=== PATIENT | male | born 1945 | race Caucasian/White ===

== ENCOUNTER 2023-01-12 18:18 | Emergency (ER) | payer MEDICARE, SELFPAY ==
[2023-01-12] VITALS (18 sets, daily range): BP systolic 154–189; BP diastolic 67–96; PULSE 60–74; RESP 12–18; TEMP 36.3; O2SAT 97–100
--- NOTE | ~2023-01-12 | CT_ITS ---
EXAMINATION: CT abdomen pelvis w con DATE: 01/12/2023 21:49 INDICATION: Generalized abdominal pain. Nausea and vomiting. TECHNIQUE: Computed tomography (CT) of the abdomen and pelvis was performed with 100 mL Omnipaque 350 intravenous contrast. Automated exposure control and iterative reconstruction technique were employe d. The dose-length product was 1356.25 mGy-cm. COMPARISON: None. FINDINGS: The visualized portions of the lung bases demonstrate mild atelectasis. There is mild scarr ing in paraspinal right lower lobe. No pleural effusion. Cardiomegaly is noted. There are coronary ar rick calcifications. No pericardial effusion. There is a small sliding hiatal hernia. There is hetero geneous hepatic steatosis. The gallbladder is distended. Calcifications in the spleen are consistent with old granulomatous disease. The pancreas, adrenal glands, and right kidney are normal. There is a 4.5 cm cyst in left kidney. There is an umbilical hernia containing fat. The prostate is mildly enla rged. There is diverticulosis of the colon without evidence of diverticulitis. There are no dilated l oops of bowel. The appendix is not visualized. There are no pathologically enlarged lymph nodes. Ther e is no free intraperitoneal fluid. There is a total left hip arthroplasty. There is lumbar levocurva ture and severe spondylosis. IMPRESSION: 1. Gallbladder distention, which may be secondary to fasting. Correlate with physical exam exclude ac bull cholecystitis. 2. Small sliding hiatal hernia. 3. Umbilical hernia containing fat. Reviewed, dictated and finalized at location A. K SPLITTER IMPRESSION: 1. Gallbladder distention, which may be secondary to fasting. Correlate with ph ysical exam exclude acute cholecystitis. 2. Small sliding hiatal hernia. 3. Umbilical hernia containing fat.
--- NOTE | 2023-01-12 20:29 | ED.ABDPAIN ---
HPI - Abdominal Pain General Chief Complaint: Abdominal Pain Stated Complaint: I'm dehydrated and have a belly ache Time Seen by Provider: 01/12/23 20:27 Source: patient and family Mode of arrival: ambulatory Limitations: no limitations History of Present Illness HPI narrative: Patient is 77 years old white male came to the emergency room by private car with his complaining of diffuse abdominal aches for the last 5 days associated with nausea. Worse with eating and drinking, nothing make it better. May be Tylenol. Patient was seen in [place] emergency room 2 days ago, he reported that his blood work-up and CAT scan of the abdomen and pelvis showed no acute abnormalities. History of appendectomy, peptic ulcer disease, diabetes, hypertension, hyperlipidemia, hypothyroidism. Patient does not smoke or drink or uses drugs. Related Data Allergies Allergy/AdvReac Type Severity Reaction Status Date / Time No Known Allergies Allergy Verified 01/12/23 18:41 Review of Systems Review of Systems: All systems reviewed & are unremarkable except as noted in HPI and below Exam Narrative: General appearance: Well-developed, well-nourished Skin: Normal color Head: Normocephalic, nontraumatic Eyes: Clear conjunctiva ENT: Oropharynx normal, ears normal, nose normal Neck: Supple, nontender Chest and respiratory: Airway patent, no respiratory distress, no accessory muscle use Heart: Regular rate/rhythm Abdomen: Soft, mild diffuse tenderness, no guarding or rebound no organomegaly, quiet bowel sounds Vascular: Normal peripheral pulses, normal capillary refill. Musculoskeletal: Normal range of motion, nontender back Neurologic: Alert and oriented ?3, TILE MACHINE OPERATOR is normal as tested, no gross motor deficit Course Reevaluation(s) Reevaluation #1: Currently patient feeling much better after having Dilaudid and Zofran IV Date: 01/12/23 Time: 22:20 Vital Signs Vital signs: Vital Signs Temperature 36.3 C L 01/12/23 18:38 Pulse Rate 74 01/12/23 18:38 Respiratory Rate 16 01/12/23 18:38 Blood Pressure 167/86 H 01/12/23 18:38 Pulse Oximetry 99 01/12/23 18:38 Temperature 36.3 C L 01/12/23 18:38 Pulse Rate 74 01/12/23 18:38 Respiratory Rate 16 01/12/23 18:38 Blood Pressure 167/86 H 01/12/23 18:38 Pulse Oximetry 99 01/12/23 18:38 MDM - Abdominal Pain MDM Narrative Medical decision making narrative: Patient presents with diffuse abdominal aches for 5 days, associate with nausea, no fever, no chills, no constipation or diarrhea. Patient was seen in another emergency room 2 days ago and work-up showed no acute abnormality. Patient is back to our emergency room today for the same complaint, physical examination showed diffuse distention, mild diffuse tenderness, no guarding or rebound. Labs, UA, CT abdomen pelvis with IV contrast ordered. Blood work-up showed no acute abnormality, urine analysis showed no acute abnormality, CT abdomen and pelvis showed gallbladder distention. Mild intrahepatic biliary dilatation. No calcified gallstones. Bowel is normal dilated. No free air. Diverticulitis or appendicitis. No hydronephrosis. Gastroparesis is my concern. My plan to discharge patient on Bent[place] and to follow-up with dealer support technician. Patient agreed, the pt was discharged to home.the pt,s condition upon discharge was fair,education was provided to the pt in reference to the final impression,discharge study results,treatment,prognosis and need for follow up . Differential Diagnosis Differential diagnosis: Likely abdominal pain, constipation, diverticulitis, pancreatitis and other (Colitis, diabetic gastroparesis) Imaging Data [facility]
--- NOTE | 2023-01-12 20:36 | PC.NURSE ---
Patient states he had taken a tramadol at approx 1600 today.
[2023-01-12 20:39] LABS: Basophils Percent Auto 0.4 % (0.2-1.2); Eosinophils Absolute Auto 0.1 K/mm3 (0-0.3); Eosinophils Percent Auto 1.4 % (0-4.4); Hematocrit 39.5 % (42.0-52.0); Hemoglobin 13.1 g/dL (14.0-18.0); Immature Granulocyte Absolute 0.03 K/mm3 (0.00-0.031); Immature Granulocyte Percent A 0.3 % (0-0.5); Lymphocytes Absolute Auto 2.46 K/mm3 (0.9-3.2); Lymphocytes Percent Auto 25.6 % (18.3-44.2); Mean Corpuscular HGB Conc 33.2 g/dl (32-36); Mean Corpuscular Hemoglobin 31.3 pg (26-34); Mean Corpuscular Volume 94.3 fl (80-100); Mean Platelet Volume 8.9 fl (7.4-10.4); Monocytes Absolute Auto 0.8 K/mm3 (0.1-0.6); Neutrophils Absolute Auto 6.2 K/mm3 (1.3-6.7); Neutrophils Percent Auto 64.3 % (45.5-73.1); Platelet Count Result 161 k/mm3 (150-375); Red Blood Count 4.19 M/mm3 (4.6-6.20); Red Cell Distribution Width 13.4 % (11.5-14.5); White Blood Count 9.6 K/mm3 (4.5-10.0)
[2023-01-12] MEDS: SODIUM CHLORIDE 0.9% IV 1,000 ML 999 ML IV CONT (20:45)
[2023-01-12 21:06] LABS: Alanine Aminotransferase 38 U/L (6-50); Albumin Level 4.9 g/dL (3.5-5.1); Alkaline Phosphatase 69 U/L (38-126); Anion Gap 12 mmol/L (8-16); Aspartate Amino Transferase 45 U/L (17-59); Bilirubin,Total 1.1 mg/dL (0.2-1.3); Blood Urea Nitrogen 19 mg/dL (9-20); Calcium 8.7 mg/dL (8.4-10.2); Carbon Dioxide 26 mmol/L (22-30); Chloride 103 mmol/L (98-107); Estimated CRCL calculation 53 ml/min; Estimated Glomerular Filt Rate 59; Glucose 110 mg/dL (65-110); Lipase 264 U/L (23-300); Potassium 4.1 mmol/L (3.4-5.0); Sodium 141 mmol/L (137-145)
--- NOTE | 2023-01-12 21:34 | PC.NURSE ---
Patient taken to CT at this time.
[2023-01-12 22:07] LABS: Appearance Urine Clear (Clear); Bilirubin Urine Negative (Negative); Blood Urine Negative (Negative); Color Urine Yellow (Yellow); Glucose Urine UA Negative (Negative); Ketones Urine Negative (Negative); Leukocyte Esterase Ur Negative LEU/UL (Negative); Nitrate Urine Negative (Negative); Protein Urine 1+ mg/dL (Negative); Specific Grav Ur 1.015 (1.001-1.035); Urobilinogen Urine 0.2 mg/dL (<2.0); pH Urine 5.5 (5.0-9.0)
[2023-01-12 22:11] LABS: RBC Urine 0-2 /hpf (0-2); WBC Urine 0-3 /hpf
[2023-01-12 22:13] LABS: Add Urine Microscopic? YES
[2023-01-12] MEDS: HYDROmorphone HCL INJ (*CRX) 1 MG/ML SYR 0.5 MG IV PUSH (22:23)
[2023-01-12] MEDS: ONDANSETRON INJ 4 MG/2 ML VIAL IV PUSH (22:23)
== END 2023-01-12 23:23 | disposition home or self-care (01) ==
PROVIDERS: Physician Assistant; Emergency Provider Emergency Medicine; PCP Pediatrics
DX: R10.84 Generalized abdominal pain (principal)
CPT/HCPCS: 36415; 74177; 80053; 81001; 83690; 85025; 96361; 96365; 96375; 99284; J1170; J2405; J7030; Q9967

== ENCOUNTER 2023-02-15 00:43 | Day surgery (SDC) | payer MEDICARE, SELFPAY ==
[2023-02-04 15:24] VITALS: BMI 40.3
[2023-02-15 10:26] VITALS: BP 169/84; PULSE 84; RESP 20; TEMP 36.4; O2SAT 100; BMI 35.7
--- NOTE | 2023-02-15 10:30 | WPDHPUPDATE1 ---
History and Physical Update Update Date/Time: 02/15/23 10:30 Patient notes marked improvement in abdominal pain which lasted for about 2 weeks. He states dicyclomine has helped to a great deal. History and Physical has been reviewed, including an updated exam of the patient. There are NO changes in the patient's condition. Risks, benefits, and alternatives have been discussed and questions answered. Patient agrees to proceed with procedure.
[2023-02-15] MEDS: LACTATED RINGERS 1,000 ML 150 ML IV CONT (10:41)
[2023-02-15 10:45] LABS: Glucose Point of Care 147 mg/dl (65-105)
--- NOTE | 2023-02-15 11:09 | WPDANESEPPF ---
Anes - Initial Pre Proc Eval Procedure: Operation Date: 02/15/23 11:15 Proposed Procedures p Esophagogastroduodenoscopy & Colonoscopy - Elmer Hallman MD Date/Time: 02/15/23 11:09 Surgeon: Elmer Hallman MD Pre Op Diagnosis: nausea, abd pain, diarrhea Patient Data Age: 77 Gender: M Height: 1.68 m Weight: 100.5 kg Last Vital Signs Temp 97.5 F L 02/15/23 10:26 Pulse 84 02/15/23 10:26 Resp 20 02/15/23 10:26 BP 169/84 H 02/15/23 10:26 Pulse Ox 100 02/15/23 10:26 O2 Del Method Room Air 02/15/23 10:26 Allergies Allergy/AdvReac Type Severity Reaction Status Date / Time No Known Allergies Allergy Verified 02/15/23 10:24 Home Medications Medication Instructions Recorded Confirmed Type alogliptin 12.5 mg tablet 12.5 mg PO DAILY 01/17/23 02/04/23 History amlodipine 5 mg tablet 5 mg PO DAILY 01/17/23 02/04/23 History apixaban 5 mg tablet 5 mg PO BID 01/17/23 02/04/23 History flunisolide 25 mcg (0.025 %) nasal 2 spray intranasal BID 01/17/23 02/04/23 History spray gabapentin 800 mg tablet 800 mg PO TID 01/17/23 02/04/23 History ketotifen fumarate 0.025 % (0.035 1 drp EACH EYE DAILY 01/17/23 02/04/23 History %) eye drops (Zaditor) levothyroxine 75 mcg tablet 75 mcg PO DAILY 01/17/23 02/04/23 History loratadine 10 mg capsule 10 mg PO DAILY 01/17/23 02/04/23 History magnesium oxide 400 mg PO DAILY 01/17/23 02/04/23 History metoclopramide HCl 10 mg tablet 10 mg PO Q6H PRN Nausea 01/17/23 02/04/23 History metoprolol succinate 100 mg 100 mg PO DAILY 01/17/23 02/04/23 History tablet,extended release 24 hr pantoprazole 40 mg tablet,delayed 40 mg PO QAM 01/17/23 02/04/23 History release sertraline 100 mg tablet 100 mg PO DAILY 01/17/23 02/04/23 History sucralfate 1 gram tablet 1 g PO QID 01/17/23 02/04/23 History tamsulosin 0.4 mg capsule (Flomax) 0.4 mg PO DAILY 01/17/23 02/04/23 History atorvastatin 20 mg tablet 10 mg PO DAILY 02/04/23 02/04/23 History diclofenac 75 mg-misoprostol 200 1 tablet PO BID 02/04/23 02/04/23 History mcg tablet,immediate,delayed release dicyclomine 20 mg tablet 20 mg PO QID 02/04/23 02/04/23 History lisinopril 20 mg tablet 10 mg PO BID 02/04/23 02/04/23 History metformin 1,000 mg tablet,extended 500 mg PO BID 02/04/23 02/04/23 History release 24hr Laboratory Tests 02/15/23 10:39 POC Capillary Glucose 147 mg/dl H mg/dl (65-105) Patient hx anesthesia problems: none Family hx anesthesia problems: none Results Review: All pre-operative results and documents have been reviewed as part of the pre-operative evaluation. 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, chronic Surgical History Surgical History (Updated 01/17/23 @ 14:24 by Artem Seth) Hip joint replacement status S/P appy Social History Social History (Updated 01/17/23 @ 14:26 by Artem Seth) Social History: former smoker Smoking packs per day: 2 Smoking cigarettes per day: 40.0 Years smoked: 40 Smoking pack-years: 80.00 Smoking status: Former smoker Tobacco type: cigarettes Alcohol intake: never Substance use: never Substance use type: does not use Living arrangements: alone Spiritual care concerns: No Anes - Eval Final PreProcedure Day of Procedure 02/15/23 11:09 Patient weight: obese Heart: regular rate and rhythm Lungs: clear to auscultation Airway: Mallampati scale class III Neurological: alert and oriented Last oral intake: >/= 8 hours ASA classification: III Emergent: no Anesthetic plan: proceed Anesthesia type and monitoring: general GIVS and standard monitoring Results Review: All p
--- NOTE | 2023-02-15 11:39 | SUR.OPER ---
EGD: [id number] COLON: [id number]
[2023-02-15 11:54] VITALS: BP 123/71; PULSE 60; RESP 16; O2SAT 100
--- NOTE | 2023-02-15 11:57 | SUR.OPER ---
No Sigmoid Colon Polyp obtained. Dr. Hallman made aware.
[2023-02-15 12:04] VITALS: BP 143/73; PULSE 63; RESP 20; O2SAT 100
[2023-02-15 12:14] VITALS: BP 135/77; PULSE 68; RESP 19; O2SAT 100
== END 2023-02-15 12:27 | disposition home or self-care (01) ==
PROVIDERS: PCP Pediatrics; Visit Provider Internal Medicine Gastroenterology
PROC: 0DJ08ZZ Inspection of Upper Intestinal Tract, Via Natural or Artificial Opening Endoscopic (ICD-10-PCS; CPT 43235; principal; 2023-02-15 11:15)
DX: Z12.11 Encounter for screening for malignant neoplasm of colon (principal); R19.7 Diarrhea, unspecified; D12.2 Benign neoplasm of ascending colon; K63.5 Polyp of colon; K57.30 Diverticulosis of large intestine without perforation or abscess without bleeding; R11.0 Nausea; R10.84 Generalized abdominal pain; I10 Essential (primary) hypertension; E78.5 Hyperlipidemia, unspecified; N40.0 Benign prostatic hyperplasia without lower urinary tract symptoms; F41.9 Anxiety disorder, unspecified; I25.10 Atherosclerotic heart disease of native coronary artery without angina pectoris; E11.9 Type 2 diabetes mellitus without complications; Z87.891 Personal history of nicotine dependence; E66.9 Obesity, unspecified; Z68.35 Body mass index [BMI] 35.0-35.9, adult; Z79.01 Long term (current) use of anticoagulants; Z79.84 Long term (current) use of oral hypoglycemic drugs
CPT/HCPCS: 45385; 43239; 82948; 87081; 88305; J2704; J7120

== ENCOUNTER 2023-10-13 20:03 | Observation (INO) | payer MEDICARE, SELFPAY ==
--- NOTE | ~2023-10-13 | XR_ITS ---
XR chest 2V 10/13/2023 20:33 Indication: Chest pain and shortness of breath Procedure: 2 view chest Comparison: No prior studies for comparison. Findings: Cardiomegaly. Right basilar airspace disease which may represent pneumonia or atelectasis. No significant effusion. No pneumothorax. Impression: 1: Right basilar airspace disease may represent pneumonia and/or atelectasis. Reviewed, dictated and finalized at location A. MIC BALANCER Impression: 1: Right basilar airspace disease may represent pneumonia and/or atelectasis.
--- NOTE | ~2023-10-13 | XR_ITS ---
Right elbow Technique: AP and lateral views were obtained. Clinical History: Pain Findings: No acute fracture or dislocation is seen. Osseous alignment is anatomic. Joint spaces are p reserved. There is probable minimal spurring at the coronoid process of the ulna. There is no displac ement of the fat pads, and soft tissues are unremarkable. Impression: No evidence for fracture or dislocation. Probable minimal spurring at the coronoid process of the ulna. Reviewed, dictated and finalized at location M. SPLITTER Impression: No evidence for fracture or dislocation. Probable minimal spurring at the coronoid process of the ulna.
--- NOTE | ~2023-10-13 | XR_ITS ---
Right Knee Technique: AP, lateral, and sunrise views were obtained. Clinical History: Pain Findings: No fracture or dislocation is seen. Right knee arthroplasty hardware in place. No hardware complication seen. Ovoid lucency at the distal femoral shaft is probably related to prior surgery. So ft tissues are unremarkable. No joint effusion is seen. Impression: No acute abnormality seen. Right knee arthroplasty in place. Ovoid lucency at the distal femoral shaft is most likely related to postoperative change related to t he knee arthroplasty. Reviewed, dictated and finalized at location M. E DIRECTOR Impression: No acute abnormality seen. Right knee arthroplasty in place. Ovoid lucency at the distal femoral shaft is most likely related to postoperati ve change related to the knee arthroplasty.
--- NOTE | ~2023-10-13 | CT_ITS ---
Noncontrast CT scan of the cervical spine Technique: Multiple contiguous axial [address] images of the cervical spine were obtained and rec onstructed in 2D sagittal and coronal planes on the acquisition scanner. Dose reduction technique was used on this scan by utilizing automated exposure control, adjustment of the mA and/or kV according to patient size. The dose-length product (DLP) was 639.45 mGy-cm. Clinical History: Pain Findings: No fracture identified. There is 4 mm anterolisthesis of C5 over C6. There is severe degene rative disc narrowing at C6-C7. There is bilateral neural foraminal narrowing at C3-C4 with bilateral facet arthropathy and small disc ossify complex. There is bilateral neural foraminal narrowing at C4 -C5 with advanced bilateral facet arthropathy. Minimal disc ossify complex present. There is severe b ilateral neural foraminal narrowing at C5-C6, with severe bilateral facet arthropathy. There is mild bilateral neural foraminal narrowing at C6-C7, bilateral facet arthropathy and mild disc osteophyte c omplex. No prevertebral soft tissue swelling. Impression: No fracture. 4 mm anterolisthesis of C5 over C6. Moderate to advanced degenerative spondylosis, as above. Reviewed, dictated and finalized at location . TARY SCIENCE INSTRUCTOR Impression: No fracture. 4 mm anterolisthesis of C5 over C6. Moderate to advanced degenerative spondylosis, as above.
--- NOTE | ~2023-10-13 | CT_ITS ---
Non-contrast Head CT History: Status post fall COMPARISON: 10/13/2023 Technique: Axial non-contrast imaging of the brain was performed. Dose reduction technique was used on this scan by utilizing automated exposure control and iterative reconstruction technique. The dose -length product (DLP) was 681.00 mGy-cm. Findings: There is no evidence of intracranial hemorrhage, mass lesion, or acute infarct. Brain par enchyma appears normal. The ventricles and subarachnoid spaces are normal in size. The calvarium ap pears normal. The visualized paranasal sinuses and mastoid air cells are clear. Impression: No significant abnormality seen. Reviewed, dictated and finalized at location . ORATE ACCOUNTING MANAGER Impression: No significant abnormality seen.
--- NOTE | ~2023-10-13 | XR_ITS ---
AP view of the pelvis and AP and lateral views of the right hip Clinical history: Pain Findings: No acute fracture or dislocation is seen. Osseous alignment is alignment. There is moderate right hip joint osteoarthritis. Left hip arthroplasty in place. Probable moderate degenerative alvarez e of bilateral SI joints. Soft tissues are unremarkable. Impression: Moderate right hip joint osteoarthritis. Left hip arthroplasty Reviewed, dictated and finalized at location . PATIONAL HEALTH NURSE MANAGER Impression: Moderate right hip joint osteoarthritis. Left hip arthroplasty
--- NOTE | ~2023-10-13 | CT_ITS ---
Non-contrast Head CT History: Confusion Technique: Axial non-contrast imaging of the brain was performed. Dose reduction technique was used on this scan by utilizing automated exposure control and iterative reconstruction technique. The dose -length product (DLP) was 681.00 mGy-cm. Findings: There is no evidence of intracranial hemorrhage, mass lesion, or acute infarct. Brain par enchyma appears normal. The ventricles and subarachnoid spaces are normal in size. The calvarium ap pears normal. The visualized paranasal sinuses and mastoid air cells are clear. Impression: No significant abnormality seen. Reviewed, dictated and finalized at location . [employer] Impression: No significant abnormality seen.
--- NOTE | 2023-10-13 20:04 | ECG_ITS ---
Measurements Intervals [place] Rate: 125 P: AK: 0 QRS: 61 QRSD: 98 T: -7 QT: 311 QTc: 449 Interpretive Statements ATRIAL FIBRILLATION WITH RAPID VENTRICULAR RESPONSE WITH ABERRANT CONDUCTION OR VENTRICULAR PREMATURE COMPLEXES INDETERMINATE AXIS LOW QRS VOLTAGE ABNORMAL ECG NO PREVIOUS ECG AVAILABLE FOR COMPARISON Electronically Signed On 10-14-2023 15:02:32 STRADDLE BUG DRIVER by Omer Mcdonnell M.D.
[2023-10-13 20:10] VITALS: BP 185/87; PULSE 103; RESP 18; TEMP 36.9; O2SAT 97
[2023-10-13 20:25] LABS: Basophils Percent Auto 0.3 % (0.2-1.2); Eosinophils Absolute Auto 0.2 K/mm3 (0-0.3); Eosinophils Percent Auto 2.3 % (0-4.4); Hemoglobin 9.3 g/dL (14.0-18.0); Immature Granulocyte Absolute 0.04 K/mm3 (0.00-0.031); Immature Granulocyte Percent A 0.5 % (0-0.5); Lymphocytes Absolute Auto 0.85 K/mm3 (0.9-3.2); Lymphocytes Percent Auto 10.7 % (18.3-44.2); Mean Corpuscular HGB Conc 32.1 g/dl (32-36); Mean Corpuscular Volume 96.7 fl (80-100); Mean Platelet Volume 8.2 fl (7.4-10.4); Monocytes Absolute Auto 0.8 K/mm3 (0.1-0.6); Monocytes Percent Auto 9.5 % (2.6-8.5); Neutrophils Absolute Auto 6.1 K/mm3 (1.3-6.7); Neutrophils Percent Auto 76.7 % (45.5-73.1); Platelet Count Result 157 k/mm3 (150-375); Red Cell Distribution Width 13.3 % (11.5-14.5); White Blood Count 7.9 K/mm3 (4.5-10.0)
[2023-10-13 20:36] LABS: INR 1.7; Prothrombin Time 20.6 Seconds (11.1-14.7)
[2023-10-13 20:37] LABS: Alanine Aminotransferase 33 U/L (6-50); Albumin Level 4.1 g/dL (3.5-5.1); Alkaline Phosphatase 68 U/L (38-126); Anion Gap 10 mmol/L (8-16); Aspartate Amino Transferase 40 U/L (17-59); Bilirubin,Total 1.2 mg/dL (0.2-1.3); Blood Urea Nitrogen 44 mg/dL (9-20); Calcium 9.2 mg/dL (8.4-10.2); Carbon Dioxide 24 mmol/L (22-30); Chloride 103 mmol/L (98-107); Estimated CRCL calculation 46 ml/min; Estimated Glomerular Filt Rate 49; Glucose 188 mg/dL (65-110); Lipase 85 U/L (23-300); Potassium 4.3 mmol/L (3.4-5.0); Sodium 137 mmol/L (137-145)
[2023-10-13 20:38] LABS: Partial Thromboplastin Time 58.2 SECONDS (22.3-36.8)
[2023-10-13 20:49] LABS: Troponin I 0.018 ng/mL (0.000-0.034)
[2023-10-13 21:48] VITALS: PULSE 113
[2023-10-13 21:49] VITALS: BP 161/81; PULSE 113; RESP 18; O2SAT 100; O2SAT 99
[2023-10-13 22:46] VITALS: O2SAT 99
[2023-10-13 23:45] LABS: Troponin I 0.016 ng/mL (0.000-0.034)
[2023-10-14] VITALS (24 sets, daily range): BP systolic 139–195; BP diastolic 62–98; PULSE 91–118; RESP 14–24; TEMP 36.8; O2SAT 94–100; BMI 36.1
[2023-10-14 00:18] LABS: Magnesium 1.6 mg/dL (1.6-2.3)
[2023-10-14 00:23] LABS: Appearance Urine Clear (Clear); Bacteria Urine None Seen /hpf; Bilirubin Urine Negative (Negative); Blood Urine Negative (Negative); Color Urine Yellow (Yellow); Glucose Urine UA Negative (Negative); Ketones Urine Negative (Negative); Leukocyte Esterase Ur Negative LEU/UL (Negative); Nitrate Urine Negative (Negative); Non Pathogenic Casts 0-2; Protein Urine 1+ mg/dL (Negative); RBC Urine 0-2 /hpf (0-2); Specific Grav Ur 1.019 (1.001-1.035); Squamous Epithelial Cell Urine None seen /hpf (Few); Uric Acid Crystals Urine Present /hpf; WBC Urine 0-5 /hpf; pH Urine 5.5 (5.0-9.0)
[2023-10-14 00:24] LABS: Add Urine Microscopic? YES
--- NOTE | 2023-10-14 00:45 | ED.GENADULT ---
HPI - General Adult General Chief complaint: Chest Pain Stated complaint: chest pain, shortness of breath Time Seen by Provider: 10/13/23 23:01 History of Present Illness HPI narrative: Patient 78-year-old gentleman who presents to the emergency department with chief complaint of confusion. Patient had knee surgery last Saturday with the knee replacement patient has history of atrial fibrillation and takes blood thinners the patient was seen in the [facility] yesterday for confusion was given Narcan but the patient was observed overnight and was discharged home the family has noticed today he is still having issues with forgetfulness and were concerned that he may have had a stroke of a also feels of a cannot care for the patient at home. Related Data Home Medications Medication Instructions Recorded Confirmed alogliptin 12.5 mg tablet 12.5 mg PO DAILY 01/17/23 02/04/23 amlodipine 5 mg tablet 5 mg PO DAILY 01/17/23 02/04/23 apixaban 5 mg tablet 5 mg PO BID 01/17/23 02/04/23 flunisolide 25 mcg (0.025 %) nasal 2 spray intranasal BID 01/17/23 02/04/23 spray gabapentin 800 mg tablet 800 mg PO TID 01/17/23 02/04/23 ketotifen fumarate 0.025 % (0.035 1 drp EACH EYE DAILY 01/17/23 02/04/23 %) eye drops (Zaditor) levothyroxine 75 mcg tablet 75 mcg PO DAILY 01/17/23 02/04/23 loratadine 10 mg capsule 10 mg PO DAILY 01/17/23 02/04/23 magnesium oxide 400 mg PO DAILY 01/17/23 02/04/23 metoclopramide HCl 10 mg tablet 10 mg PO Q6H PRN Nausea 01/17/23 02/04/23 metoprolol succinate 100 mg 100 mg PO DAILY 01/17/23 02/04/23 tablet,extended release 24 hr pantoprazole 40 mg tablet,delayed 40 mg PO QAM 01/17/23 02/04/23 release sertraline 100 mg tablet 100 mg PO DAILY 01/17/23 02/04/23 tamsulosin 0.4 mg capsule (Flomax) 0.4 mg PO DAILY 01/17/23 02/04/23 atorvastatin 20 mg tablet 10 mg PO DAILY 02/04/23 02/04/23 diclofenac 75 mg-misoprostol 200 1 tablet PO BID 02/04/23 02/04/23 mcg tablet,immediate,delayed release dicyclomine 20 mg tablet 20 mg PO QID 02/04/23 02/04/23 lisinopril 20 mg tablet 10 mg PO BID 02/04/23 02/04/23 metformin 1,000 mg tablet,extended 500 mg PO BID 02/04/23 02/04/23 release 24hr Allergies Allergy/AdvReac Type Severity Reaction Status Date / Time No Known Allergies Allergy Verified 03/27/23 15:39 Review of Systems Review of Systems: A 10 system review of systems was completed on the patient and is negative except for what is stated in the HPI. Nursing and ancillary documentation was reviewed. 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 HEAD: Normocephalic, atraumatic. EYES: PERRLA and EOMI. ENT: Nares clear, no rhinorrhea or epistaxis. Mucous membranes moist. NECK: Supple. CHEST: Clear to auscultation. No respiratory distress. HEART: Regular rate and rhythm. No murmur heard. Normal peripheral pulses. ABDOMEN: Soft, nontender, nondistended, normal active bowel sounds. EXTREMITIES: Normal range of mo
[2023-10-14 00:51] LABS: Influenza A QL RT-PCR Negative (Negative); Influenza B QL RT-PCR Negative (Negative); RSV RNA, RT-PCR Negative (Negative); SARS-CoV-2 RNA PCR Negative (Negative)
--- NOTE | 2023-10-14 01:20 | PC.NURSE ---
ON 10/14/2023 AT APPROX 0105; PT ASSISTED UP TO W/C BY THIS RN AND PT'S SON; LUIS FELIPE. PT WHEELED FROM ED ROOM #13 TO ED RESTROOM NEXT TO ED ROOM #15. PT ASSISTED OUT OF W/C BY THIS RN AND HIS SON, AND ONTO TOILET. W/C REMOVED FROM RESTROOM BY THIS RN, PT'S SON FOLLOWED. APPROXIMATELY 30-60 SECONDS LATER PT FELL ONTO FLOOR ONTO RIGHT SIDE, PUSHING RESTROOM DOOR OPEN AND NOW LYING HALF IN RESTROOM AND HALF IN HALLWAY AT 0112. THIS FALL IMMEDIATELY WITNESSED BY HIS SON, AND MOIRA RODRÍGUEZ (.NET ARCHITECT FOR ED ROOM #15). THIS RN HEARD THIS FALL FROM THE NURSES STATION. PT ASSISTED UP INTO W/C BY MULTIPLE STAFF MEMBERS AND EXAMINED BY EDP; DR. CASILLAS. MULTIPLE IMAGING STUDIES WERE ORDERED BY EDP AT THIS TIME. DOOR ASSEMBLER, SAW Doshi RN MADE AWARE VIA [employer] AT 0114.
[2023-10-14 01:24] LABS: Procalcitonin 0.6 ng/mL
[2023-10-14 02:53] LABS: Troponin I 0.019 ng/mL (0.000-0.034)
[2023-10-14] MEDS: SODIUM CHLORIDE 0.9% IV 1,000 ML 125 ML IV CONT (03:27)
--- NOTE | 2023-10-14 14:39 | PM.IMHP ---
H&P: HPI History of Present Illness Date/Time: 10/14/23 14:39 Chief Complaint: Patient transferred to the ER for evaluation due to confusion and generalized weakness Narrative: 78 years old pleasantly confused white gentleman who underwent right knee replacement surgery last week, and was discharged home. Family is reporting confusion and generalized weakness for the last couple of days, especially after he was started on narcotics for pain control. He was seen in [facility], was given Narcan, observed overnight and discharged back home. Family felt the patient is having issues with forgetfulness, hallucination and were concerned that he might have a stroke, hence the patient was brought to ER for evaluation. Workup was done which ruled out any stroke. He is being placed under observation for PT/OT evaluation and possible SNF placement. Review of Systems Review of Systems: Unable to be obtained. 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, chronic Surgical History Surgical History (Updated 10/14/23 @ 14:49 by Milton Deleon MD) Hip joint replacement status S/P appy Social History Social History Social History: former smoker Smoking packs per day: 2 Smoking cigarettes per day: 40.0 Years smoked: 40 Smoking pack-years: 80.00 Smoking status: Former smoker Tobacco type: cigarettes Second hand tobacco smoke exposure: Yes Alcohol intake: unknown Substance use: never Substance use type: does not use Lack of Transportation: No Lack of Food: Never True Current Housing: I Have Housing Concerned About Future Housing: No Difficulty Paying Gas/Electric Bills: No Difficulty Paying for Meds: No Currently Unemployed: No Education: High School Diploma/GED Difficulty w/ Childcare or Family Care: No Living arrangements: alone Spiritual care concerns: No Meds Home Medications and Allergies Home Medications Medication Instructions Recorded Confirmed Type alogliptin 12.5 mg tablet 12.5 mg PO DAILY 01/17/23 10/14/23 History amlodipine 5 mg tablet 5 mg PO DAILY 01/17/23 10/14/23 History apixaban 5 mg tablet 5 mg PO BID 01/17/23 10/14/23 History flunisolide 25 mcg (0.025 %) nasal 2 spray intranasal BID 01/17/23 10/14/23 History spray gabapentin 800 mg tablet 800 mg PO TID 01/17/23 10/14/23 History ketotifen fumarate 0.025 % (0.035 1 drp EACH EYE DAILY 01/17/23 10/14/23 History %) eye drops (Zaditor) levothyroxine 75 mcg tablet 75 mcg PO DAILY 01/17/23 10/14/23 History loratadine 10 mg capsule 10 mg PO DAILY 01/17/23 10/14/23 History magnesium oxide 400 mg PO DAILY 01/17/23 10/14/23 History metoclopramide HCl 10 mg tablet 10 mg PO Q6H PRN Nausea 01/17/23 10/14/23 History metoprolol succinate 100 mg 100 mg PO DAILY 01/17/23 10/14/23 History tablet,extended release 24 hr pantoprazole 40 mg tablet,delayed 40 mg PO QAM 01/17/23 10/14/23 History release sertraline 100 mg tablet 100 mg PO DAILY 01/17/23 10/14/23 History tamsulosin 0.4 mg capsule (Flomax) 0.4 mg PO DAILY 01/17/23 10/14/23 History atorvastatin 20 mg tablet 10 mg PO DAILY 02/04/23 10/14/23 History diclofenac 75 mg-misoprostol 200 1 tablet PO BID 02/04/23 10/14/23 History mcg tablet,immediate,delayed release dicyclomine 20 mg tablet 20 mg PO QID 02/04/23 10/14/23 History lisinopril 20 mg tablet 10 mg PO BID 02/04/23 10/14/23 History metformin 1,000 mg tablet,extended 500 mg PO BID
[2023-10-14] MEDS: amLODIPine BESYLATE 5 MG TABLET PO (18:29)
[2023-10-14] MEDS: DICYCLOMINE HCL 10 MG CAPSULE 20 MG PO ×2 (18:30→20:35)
[2023-10-14] MEDS: APIXABAN 5 MG TABLET PO (18:30)
[2023-10-14] MEDS: lisinopriL 10 MG TABLET PO (18:30)
[2023-10-14] MEDS: LORATADINE 10 MG TABLET PO (18:30)
[2023-10-14 21:11] LABS: Glucose Point of Care 153 mg/dl (65-105)
[2023-10-15] VITALS: BP 153/76; PULSE 85; RESP 18; TEMP 36.8; O2SAT 99
[2023-10-15] MEDS: ACETAMINOPHEN 325 MG TABLET 650 MG PO ×2 (01:13→11:29)
[2023-10-15 04:40] VITALS: BP 169/83; PULSE 58; RESP 12; TEMP 36.5; O2SAT 100
[2023-10-15] MEDS: LEVOTHYROXINE SODIUM 75 MCG TABLET PO (05:43)
[2023-10-15 05:52] LABS: Hematocrit 27.5 % (42.0-52.0); Hemoglobin 8.9 g/dL (14.0-18.0); Mean Corpuscular HGB Conc 32.4 g/dl (32-36); Mean Corpuscular Hemoglobin 30.7 pg (26-34); Mean Corpuscular Volume 94.8 fl (80-100); Mean Platelet Volume 8.7 fl (7.4-10.4); Platelet Count Result 163 k/mm3 (150-375); Red Cell Distribution Width 13.1 % (11.5-14.5); White Blood Count 6.7 K/mm3 (4.5-10.0)
[2023-10-15 06:09] LABS: Anion Gap 12 mmol/L (8-16); Blood Urea Nitrogen 24 mg/dL (9-20); Carbon Dioxide 23 mmol/L (22-30); Chloride 105 mmol/L (98-107); Estimated CRCL calculation 70 ml/min; Estimated Glomerular Filt Rate > 60; Glucose 154 mg/dL (65-110); Phosphorus 2.9 mg/dL (2.5-4.5); Potassium 3.9 mmol/L (3.4-5.0); Sodium 140 mmol/L (137-145)
--- NOTE | 2023-10-15 07:54 | PC.NURSE ---
This patient, Eliu Jean-Baptiste, was admitted to Medical Room 342-01. Patient/family oriented to hospital policies and general routines including ID bracelet, bed and alarms, visiting hours, pain management, procedures, bathroom and other care routines, personal items, smoking policy, room service/diet, and visiting hours. Information on how to activate the Rapid Response Team has been discussed. Patient/Family are encouraged to report perceived risks to care and to ask questions if they do not understand what they are told or what they should do.
[2023-10-15 08:00] VITALS: BP 187/89; PULSE 115; RESP 18; O2SAT 99
[2023-10-15 08:35] LABS: Glucose Point of Care 161 mg/dl (65-105)
[2023-10-15 09:22] VITALS: PULSE 97
[2023-10-15] MEDS: lisinopriL 10 MG TABLET PO (09:22)
[2023-10-15] MEDS: MAGNESIUM OXIDE 400 MG TABLET PO (09:22)
[2023-10-15] MEDS: APIXABAN 5 MG TABLET PO (09:22)
[2023-10-15] MEDS: LORATADINE 10 MG TABLET PO (09:22)
[2023-10-15] MEDS: DICYCLOMINE HCL 10 MG CAPSULE 20 MG PO (09:22)
[2023-10-15] MEDS: FERROUS SULFATE 325 MG TABLET DR BY MOUTH (09:22)
[2023-10-15] MEDS: amLODIPine BESYLATE 5 MG TABLET PO (09:22)
[2023-10-15] MEDS: METOPROLOL SUCCINATE EXT REL 100 MG TABCR PO (09:22)
[2023-10-15] MEDS: POTASSIUM CHLORIDE 20 MEQ ER TABLET PO (09:23)
[2023-10-15] MEDS: TAMSULOSIN HCL 0.4 MG CAPSULE PO (09:23)
[2023-10-15] MEDS: PANTOPRAZOLE 40 MG TABLET PO (09:23)
[2023-10-15] MEDS: SERTRALINE HCL 50 MG TABLET 100 MG PO (09:36)
[2023-10-15] MEDS: FLUTICASONE PROPIONATE 0.05% NA SPR 16 GM BTL (*BKC) 2 SPRAY NASAL (11:29)
[2023-10-15 12:00] LABS: Glucose Point of Care 249 mg/dl (65-105)
[2023-10-15 14:36] VITALS: BP 177/95; PULSE 94; RESP 18; TEMP 36.2; O2SAT 99
--- NOTE | 2023-10-15 14:45 | PM.DS ---
DS: Admitting Diagnosis Discharge Date 10/15/2023: Admitting Diagnosis Generalized weakness confusion KASSANDRA DS: Discharge Diagnosis Discharge Diagnosis (1) KASSANDRA (acute kidney injury): Code(s): N17.9 - Acute kidney failure, unspecified Status: Acute (2) Confusion: Code(s): R41.0 - Disorientation, unspecified Status: Acute (3) Impaired ambulation: Code(s): R26.2 - Difficulty in walking, not elsewhere classified Status: Acute (4) Generalized weakness: Code(s): R53.1 - Weakness Status: Acute (5) Status post knee replacement: Code(s): Z96.659 - Presence of unspecified artificial knee joint Status: Acute (6) Chronic atrial fibrillation: Code(s): I48.20 - Chronic atrial fibrillation, unspecified Status: Acute (7) Chronic anticoagulation: Code(s): Z79.01 - long-term (current) use of anticoagulants Status: Acute (8) HTN (hypertension): Code(s): I10 - Essential (primary) hypertension Status: Acute (9) Anemia of chronic disease: Code(s): D63.8 - Anemia in other chronic diseases classified elsewhere Status: Acute DS: Summary Hospital Course Reason for hospitalization: Patient admitted with confusion and generalized weakness. Workup was done which showed KASSANDRA Hospital Course: [facility] [address] [place] [address] History & Physical Report Signed Patient: Eliu Jean-Baptiste H&P: HPI History of Present Illness Date/Time: 10/14/23? 14:39 Chief Complaint: Patient transferred to the ER for evaluation due to confusion and generalized weakness Narrative: 78 years old pleasantly confused white gentleman who underwent right knee replacement surgery last week, and was? discharged home. Family is reporting confusion and generalized weakness for the last couple of days, especially after he was started on narcotics for pain control.? He was seen in [facility], was given Narcan, observed overnight and discharged back home.? Family felt the patient is having issues with forgetfulness, hallucination and were concerned that he might have a stroke, ? hence the patient was brought to ER for evaluation. Workup was done which ruled out any stroke.? He is being? placed under observation for PT/OT evaluation and possible SNF placement. HOSPITAL COURSE ... 10/12/2023 - 10/15/2023: Patient admitted to the floor and given IV hydration. Renal functions improved. Serum creatinine improved from 1.4-0.9. Patient is much more awake and alert and wants to get out of the hospital. PT OT evaluation done and patient does not meet criteria for SNF placement. He has been medical stable to be discharged home with home healthcare. He is advised to follow up closely with PCP and Orthopedics as outpatient. I will hold off on his the low-dose Lasix until he sees his PCP. He is on a very high dose of gabapentin 800 mg p.o. t.i.d. which I will cut down to 300 mg p.o. t.i.d.. continue family, narcotics have caused confusion in him post surgery. I will discharge him on 3 days of oral tramadol 50 mg q.8 hours as needed which he has tolerated well in the hospital. Further medicine adjustments as per PCP. Detailed discharge directions delivered to the patient by myself and my nursing staff, who verbalizes understanding and is very happy and satisfied with the plan. Patient has been advised to continue all medications as prescribed and advised, and f/u with PCP within 1 week. Patient is stable from medical standpoint to be discharged. Total time spent during patient evaluation and assessment, discussion with the nurse/family, addressing discharge medications/scripts and coordination of care for safe discharge was in excess of 35 minutes. Status at Discharge Functional status at discharge: uses cane/walker Overall status at discharge: patient is progressing back to baseline Time Spent with Patient Time attestation: Total juanita
== END 2023-10-15 16:48 | disposition home health service (06) ==
LOC: ANHED 23:14 → ANH3MEDSUR 10-14 05:11 → ANH3MED 10-14 18:23 → ANH3MEDSUR 10-16 10:12
PROVIDERS: Admitting Provider Internal Medicine; Emergency Provider Emergency Medicine; PCP Pediatrics; Visit Provider Family Medicine
DX: N17.9 Acute kidney failure, unspecified (principal); R41.0 Disorientation, unspecified; R53.1 Weakness; R26.2 Difficulty in walking, not elsewhere classified; Z96.651 Presence of right artificial knee joint; I48.20 Chronic atrial fibrillation, unspecified; I10 Essential (primary) hypertension; D63.8 Anemia in other chronic diseases classified elsewhere; R94.31 Abnormal electrocardiogram [ECG] [EKG]; M43.12 Spondylolisthesis, cervical region; Z20.822 Contact with and (suspected) exposure to COVID-19; M47.812 Spondylosis without myelopathy or radiculopathy, cervical region; M25.521 Pain in right elbow; M16.11 Unilateral primary osteoarthritis, right hip; R11.0 Nausea; R19.7 Diarrhea, unspecified; F41.9 Anxiety disorder, unspecified; N40.0 Benign prostatic hyperplasia without lower urinary tract symptoms; I25.10 Atherosclerotic heart disease of native coronary artery without angina pectoris; E11.9 Type 2 diabetes mellitus without complications; E78.5 Hyperlipidemia, unspecified; M19.079 Primary osteoarthritis, unspecified ankle and foot; Z87.891 Personal history of nicotine dependence; Z79.84 Long term (current) use of oral hypoglycemic drugs; Z79.01 Long term (current) use of anticoagulants; Z79.899 Other long term (current) drug therapy
CPT/HCPCS: 36415; 70450; 71046; 72125; 73070; 73502; 73562; 80048; 80053; 81001; 82948; 83605; 83690; 83735; 84100; 84145; 84484; 85025; 85027; 85610; 85730; 87637; 93005; 96360; 96361; 97161; 97166; 99285; A9270; G0378; J7030